=== PATIENT | male | born 1955 | race Caucasian/White ===

== ENCOUNTER 2020-02-17 09:04 | Outpatient (CLI) | payer MEDICARE, OTHER ==
--- NOTE | 2020-02-17 10:22 | CT ---
CT lumbar spine noncontrast: 02/17/2020 HISTORY: 62-year-old male with lumbar spondylolysis, low back pain, and lumbar radiculopathy FINDINGS: 5 lumbar-type vertebrae. Vertebral body heights are maintained. No scoliosis. Somewhat severe disc sp yon narrowing at L5-S1 with vacuum disc phenomenon, and endplate degenerative changes. Mild disc space narrowing at L2-3 and L3-4. T12-L1: Very small central and bilateral paracentral disc-osteophyte complex slightly indents thecal sac. No central or neural foraminal stenosis. No high-grade facet DJD. L1-2: Essentially normal. L2-3: Mild disc bulge. No high-grade neural foraminal stenosis. Mild ligamentum flavum thickening. Mi ld to moderate central spinal canal stenosis. L3-4: Mild bilateral neural foraminal stenosis. Diffuse disc bulge. Moderate ligamentum flavum thicke juan carlos. Moderate to severe central spinal canal stenosis. Moderate bilateral facet DJD. L4-5: Mild diffuse disc bulge. Severe bilateral facet DJD. Moderate ligamentum flavum thickening. Sev ere central spinal canal stenosis. Mild to moderate right neural foraminal stenosis. Moderate left neural foraminal stenosis. Minimal 2 mm anterior translation of L4 on L5. L5-S1: Bilateral L5 pars interarticularis defects. Moderate to severe bilateral neural foraminal sten osis. Minimal 2 mm anterolisthesis of L5 on S1. Diffuse disc bulge. Right lateral recess effacement by right paracentral/lateral focal small disc herniation superimposed on mild diffuse disc bulge, imp inging on the right S1 nerve root. The appearance is very similar to that of 04/26/2017 MRI. No high-grade central spinal canal stenosis. Moderate thecal sac stenosis. IMPRESSION: 1. Bilateral L5 spondylolysis. 2. High-grade degenerative disc disease at L5-S1. 3. Chronic impingement on right S1 nerve root at L5-S1 due to chronic right paracentral-lateral focal disc herniation 4. Severe central spinal canal stenosis at L4-5. 5. Other levels of high-grade central spinal canal stenosis and neural foraminal stenosis. 6. Severe bilateral facet osteoarthrosis at L4-5.
== END 2020-02-17 09:05 | disposition home or self-care (01) ==
LOC: TBSIIMAG 09:04
PROVIDERS: ATTEND Neurological Surgery
DX: M43.06 Spondylolysis, lumbar region (principal); M51.37 Other intervertebral disc degeneration, lumbosacral region; M48.061 Spinal stenosis, lumbar region without neurogenic claudication; M47.816 Spondylosis without myelopathy or radiculopathy, lumbar region; M25.80 Other specified joint disorders, unspecified joint; M51.27 Other intervertebral disc displacement, lumbosacral region
CPT/HCPCS: 72131

== ENCOUNTER 2020-03-24 06:35 | Outpatient (CLI) | payer MEDICARE, OTHER ==
[2020-03-24 11:19] LABS: Hemoglobin 16.6 g/dL (14.0-18.0); Mean Corpuscular HGB CONC 33.5 g/dL (32.0-36.0); Mean Corpuscular Hemoglobin 29.2 pg (27.0-31.0); Mean Corpuscular Volume 87.3 fL (78.0-98.0); Mean Platelet Volume 8.8 fL (7.4-10.4); Platelet Count 221 thou/uL (130-400); RBC Distribution Width 13.6 % (11.5-14.5); Red Blood Cell (RBC) Count 5.67 mill/uL (4.70-6.10); White Blood Cell (WBC) Count 7.5 thou/uL (4.8-10.8)
[2020-03-24 12:18] LABS: Anion Gap 13 mmol/L (10-20); BUN (Urea Nitrogen) 17 mg/dL (8.4-25.7); Calc. Creatinine Clearance 0 mL/min (70-130); Calcium 10.4 mg/dL (7.8-10.44); Carbon Dioxide 29 mmol/L (23-31); Estimated GFR-MDRD 62; Glucose 102 mg/dL (80-115)
[2020-03-24 12:24] LABS: Chloride 97 mmol/L (98-107); Potassium 3.9 mmol/L (3.5-5.1); Sodium 135 mmol/L (136-145)
[2020-03-25 12:09] LABS: SARS-CoV-2 MS2 Positive; SARS-CoV-2 N Gene Negative; SARS-CoV-2 S Gene Negative; SARS-CoV-2 orf1ab Negative
== END 2020-03-24 06:36 | disposition home or self-care (01) ==
LOC: LABBT 06:35
PROVIDERS: ATTEND Neurological Surgery
DX: Z01.812 Encounter for preprocedural laboratory examination (principal); Z11.59 Encounter for screening for other viral diseases; M43.06 Spondylolysis, lumbar region
CPT/HCPCS: 80048; 85027; U0003; 87635

== ENCOUNTER 2020-03-28 07:23 | Observation (INO) | payer MEDICARE, OTHER ==
[2020-03-23 13:43] VITALS: BMI 28.8
--- NOTE | 2020-03-28 00:45 | HP ---
HISTORY OF PRESENT ILLNESS: Mr. Glasgow is a pleasant 65-year-old man, here today for both neck and low back pain that he has been dealing with for many years. His biggest concern today that his lower back, which is axial in nature and associated with the right lower extremity L5 pain. He has bilateral pars defects at L5 with no associated spondylolisthesis. He does have bilateral foraminal stenosis at this level that would fit well with his symptoms. He has treated his back pain with therapy and injections with minimal relief and his pain continued to progress. PAST MEDICAL HISTORY: Significant for chronic pain syndrome, hypertension, diabetes, and autoimmune disease. CURRENT MEDICATIONS: Naproxen, Movantik, metoprolol, methotrexate, metformin, lisinopril/hydrochlorothiazide, ketoconazole, hydromorphone, Horizant, folate, fluocinonide, duloxetine, diclofenac, azelastine, Nuvigil, OxyContin, pantoprazole, promethazine, rosuvastatin, sulfasalazine, tamsulosin, and tizanidine. PAST SURGICAL HISTORY: DCS placement. ALLERGIES: NONE LISTED. PHYSICAL EXAMINATION: NEUROLOGIC: The patient is alert and oriented x3. Gait is antalgic and slow. Lower extremity motor exam is normal. ASSESSMENT: Lumbar spondylolysis and radiculopathy with lumbar back pain. PLAN: Dr. Alfaro met with the patient, reviewed imaging, advocated for lumbar decompression and fusion and removal of dorsal column stimulator. He explained to the patient the risks, benefits, and alternatives to the procedure. The patient expressed understanding and elected to move forward with surgery as discussed. I do believe that the patient is mentally competent and capable of making medical decisions for himself. We will move forward with surgery as planned. Job ID: [id number]
[2020-03-28] MEDS ORDERED: Clindamycin/D5W 900 mg/50 ml Premix Bag ONE (09:08)
[2020-03-28] MEDS ORDERED: Levofloxacin 500 mg/D5W 100 ml Premix Bag ONE (09:08)
[2020-03-28] MEDS ORDERED: Thrombin 5000 UNITS/5 ML VIAL ONE (09:34)
[2020-03-28] MEDS ORDERED: EPINEPHrine 1 MG/ML AMP ONE (09:34)
[2020-03-28] MEDS ORDERED: Bupivacaine PF 0.5% 30 ML VIAL ONE (09:34)
[2020-03-28] MEDS ORDERED: Fentanyl 100 MCG/2 ML VIAL ONE ×4 (09:38→13:59)
[2020-03-28] MEDS ORDERED: EPHEDRINE 25 MG/5 ML SYRINGE ONE (12:18)
[2020-03-28] MEDS ORDERED: PROPOFOL 200 MG/20 ML VIAL ONE (12:18)
[2020-03-28] MEDS ORDERED: Dexamethasone 20 MG/5 ML VIAL ONE (12:18)
[2020-03-28] MEDS ORDERED: Rocuronium Bromide 10 MG/ML (10ML VIAL) ONE (12:18)
[2020-03-28] MEDS ORDERED: Ondansetron PF 4 MG/2 ML Vial ONE (12:18)
[2020-03-28] MEDS ORDERED: HYDROmorphone 2 MG/ML VIAL ONE (13:47)
[2020-03-28] MEDS ORDERED: Tamsulosin HCl 0.4 MG CAP ONE (14:18)
[2020-03-28] MEDS ORDERED: HYDROcodone/Acetaminophen 10/325 mg Tablet ONE (17:05)
[2020-03-28] MEDS ORDERED: Bisacodyl 10 MG SUPP PR PRN (18:01)
[2020-03-28] MEDS ORDERED: Cyclobenzaprine 10 MG TAB PO PRN (18:01)
[2020-03-28] MEDS ORDERED: Acetaminophen 325 MG TAB PO PRN (18:01)
[2020-03-28] MEDS ORDERED: diphenhydrAMINE 50 MG/ML VIAL IVP PRN (18:01)
[2020-03-28] MEDS ORDERED: Morphine 4 MG/ML VIAL SLOW IVP PRN (18:01)
[2020-03-28] MEDS ORDERED: Mag-Al 1200 mg/1200 mg/30 ML UDCUP PO PRN (18:01)
[2020-03-28] MEDS ORDERED: Milk Of Magnesia 30 ML UDCUP PO PRN (18:01)
[2020-03-28] MEDS ORDERED: Acetaminophen 650 MG Suppository PR PRN (18:01)
[2020-03-28] MEDS ORDERED: diphenhydrAMINE 25 MG CAP PO PRN (18:01)
[2020-03-28] MEDS ORDERED: HYDROcodone/Acetaminophen 10/325 mg Tablet PO PRN (18:01)
[2020-03-28] MEDS ORDERED: Ondansetron PF 4 MG/2 ML Vial IM PRN (18:02)
[2020-03-28] MEDS: Sodium Chloride 0.9% 1,000 ML IV SCH (18:18)
[2020-03-28] MEDS ORDERED: BUPRENORPHINE 300 MCG FS PRN (18:46)
[2020-03-28] MEDS ORDERED: HYDROmorphone 2 MG TAB PO PRN (18:47)
[2020-03-28] MEDS: metFORMIN 500 MG TAB PO SCH (20:16)
[2020-03-28] MEDS: Flecainide 50 MG TAB PO SCH (20:17)
[2020-03-28] MEDS: HYDROcodone/Acetaminophen 10/325 mg Tablet PO PRN (20:18)
[2020-03-28] MEDS ORDERED: Rosuvastatin 5 MG TAB PO SCH (21:00)
[2020-03-28] MEDS ORDERED: Lisinopril/Hydrochlorothiazide 20 mg/12.5 mg Tablet PO SCH (21:00)
[2020-03-28] MEDS ORDERED: Ferrous Sulfate 325 MG TAB PO SCH (21:00)
[2020-03-28] MEDS ORDERED: tiZANidine HCl 4 MG TAB PO SCH (21:00)
[2020-03-28] MEDS: Clindamycin/D5W 900 MG in Premix Bag 1 BAG IVPB SCH (22:02)
[2020-03-28] MEDS: Morphine 2 MG/ML SYRINGE SLOW IVP PRN (23:37)
[2020-03-29] MEDS: HYDROcodone/Acetaminophen 10/325 mg Tablet PO PRN ×2 (02:28→07:31)
[2020-03-29] MEDS: Morphine 2 MG/ML SYRINGE SLOW IVP PRN (03:20)
[2020-03-29] MEDS: Clindamycin/D5W 900 MG in Premix Bag 1 BAG IVPB SCH (05:26)
[2020-03-29] MEDS ORDERED: Levothyroxine Sodium 50 MCG TAB PO SCH (06:00)
[2020-03-29] MEDS ORDERED: Tamsulosin HCl 0.4 MG CAP PO SCH (06:00)
[2020-03-29] MEDS: Sodium Chloride 0.9% 1,000 ML IV SCH (07:27)
[2020-03-29] MEDS: Flecainide 50 MG TAB PO SCH (08:23)
[2020-03-29] MEDS: metFORMIN 500 MG TAB PO SCH (08:23)
[2020-03-29] MEDS ORDERED: Fish Oil 1,000 MG CAP PO SCH (09:00)
[2020-03-29] MEDS ORDERED: Ubidecarenone 50 MG CAP PO SCH (09:00)
[2020-03-29] MEDS ORDERED: TESTOSTERONE TD SCH (09:00)
[2020-03-29 11:59] VITALS: BP 102/51; TEMP 98.7
--- NOTE | 2020-03-30 17:55 | EKG ---
Test Reason : PREOP Blood Pressure : / mmHG Vent. Rate : 053 BPM Atrial Rate : 053 BPM P-R Int : 218 ms QRS Dur : 096 ms QT Int : 432 ms P-R-T Axes : 052 -03 040 degrees QTc Int : 405 ms Sinus bradycardia with 1st degree A-V block Otherwise normal ECG No previous ECGs available Confirmed by QUITA SANDOVAL (2) on 03/30/2020 5:55:32 PM Referred By: Tami FULLER Confirmed By:QUITA SANDOVAL
--- NOTE | 2020-04-25 12:40 | OP ---
DATE OF PROCEDURE: 03/28/2020 INFORMATION SECURITY OFFICER: Edward Neal PA-C INDICATION: Pain. DIAGNOSES: Lumbar spondylolisthesis and malfunctioning of silicon stimulator. PROCEDURE PERFORMED: Removal of dorsal column stimulator as well as fusion of L5 through S1. DESCRIPTION OF PROCEDURE: The patient was brought into the operating room and placed under general anesthesia. He was flipped from the supine to prone position on the operating room table. A linear incision was planned over the L5-S1 segment as well as two separate incisions, one over the generator and the other over the placement of the lead electrodes. All three incisions were prepped and draped and all three were open. The dural column stimulator was removed first with complete removal of both the generator and the lead electrodes. The soft tissues at L5-S1 were then exposed and a self-retaining retractor was placed for optimal exposure. After confirming the appropriate levels, laminectomies and medial facetectomies were performed at L5-S1 to decompress the lateral recesses and expose the pedicles. Pedicle screws were then placed with the aid of C-arm fluoroscopy. An intraoperative 3D CT scan was then performed to confirm placement of hardware. Rods were then placed across screw heads and final tightened. Allograft and autograft material were placed in the lateral confines of the instrumentation construct. The wound was then irrigated. Hemostasis was maintained throughout. All three wounds were closed in anatomic layers, and a pressure dressing was applied. There were no known procedural complications. Job ID: [id number]
== END 2020-03-29 12:18 | disposition home or self-care (01) ==
LOC: SDC 07:23 → SURG A 16:33
PROVIDERS: ADMIT Neurological Surgery; ATTEND Neurological Surgery
PROC: 00PU3MZ Removal of Neurostimulator Lead from Spinal Canal, Percutaneous Approach (ICD-10-PCS; principal; 2020-03-28)
PROC: 0JPT0MZ Removal of Stimulator Generator from Trunk Subcutaneous Tissue and Fascia, Open Approach (ICD-10-PCS; 2020-03-28)
PROC: 0SG3071 Fusion of Lumbosacral Joint with Autologous Tissue Substitute, Posterior Approach, Posterior Column, Open Approach (ICD-10-PCS; 2020-03-28)
DX: M43.16 Spondylolisthesis, lumbar region (principal); T85.113A Breakdown (mechanical) of implanted electronic neurostimulator, generator, initial encounter; M47.26 Other spondylosis with radiculopathy, lumbar region; M48.061 Spinal stenosis, lumbar region without neurogenic claudication; G89.4 Chronic pain syndrome; I10 Essential (primary) hypertension; E11.9 Type 2 diabetes mellitus without complications; M35.9 Systemic involvement of connective tissue, unspecified; Z79.82 Long term (current) use of aspirin; Z79.84 Long term (current) use of oral hypoglycemic drugs; Z79.899 Other long term (current) drug therapy; Z88.1 Allergy status to other antibiotic agents; Z91.030 Bee allergy status
CPT/HCPCS: 20930; 20936; 22612; 22840; 63661; 63688; 76000; 93005; 96365; 96375; 96376; C1713 ×4; G0378 ×2; 93010; J0171; J1100; J1170; J1956; J2270; J2405; J2704; J3010; J3490; S0020

== ENCOUNTER 2020-04-14 12:08 | Outpatient (CLI) | payer MEDICARE, OTHER ==
--- NOTE | 2020-04-14 13:33 | RAD ---
MRI clearance: Lumbar spine 1 view: 04/14/2020 HISTORY: 65-year-old male scheduled for MRI. Status post removal of dorsal column spinal cord stimulator. Rule out retained stimulator leads. FINDINGS: The generator and the spinal cord stimulator, demonstrated on the [facility] radiograph for the lumbar spi ne CT of 02/17/2020, have been removed. There are now skin sarah superficial to the right upper gluteal region. Laminectomy defect at L5. Bilateral pedicle screws at L5 and S1. No scoliosis. IMPRESSION: 1.) Status post removal of spinal cord stimulator. No retained leads. 2) status post midline laminectomy and posterior lumbar fusion hardware placement at lower lumbar spi ne and lumbosacral junction. 3) patient is cleared for MRI.
--- NOTE | 2020-04-14 13:52 | MRI ---
MRI Cervical Spine WO Con History: M 53.12 cervical radicular pain Comparison: Cervical spine MRI 2017 Findings: Cerebral tonsils terminate at the foramen magnum. No marrow infiltrative process. Cord sign al is normal. Paraspinal soft tissues are unremarkable. Levels are as follows: C2/C3: Minimal uncinate process hypertrophy. No neural foraminal or spinal canal narrowing. Likely fu jeanine of the right facet joint. C3/C4: Mild disc desiccation. Mild uncinate process hypertrophy. Moderate to severe right and moderat e left hypertrophic facet arthrosis. No significant spinal canal narrowing. Moderate right and mild left neural foraminal narrowing. C4/C5: Small circumferential disc bulge. Mild left and moderate right hypertrophic facet arthrosis. M oderate right and mild left neural foraminal narrowing. Mild effacement of the ventral CSF space with the spinal canal measuring over 11 mm. C5/C6: Mild disc desiccation and height loss with circumferential disc osteophyte complex. Only mild hypertrophic facet arthrosis. Moderate to severe left and moderate right neural foraminal narrowing predominantly sequelae of the lateral recess and subforaminal disc osteophyte complex. No significant spinal canal narrowing. C6/C7: Mild disc desiccation and height loss with circumferential disc osteophyte complex. Only mild hypertrophic facet arthrosis. Mild effacement of ventral CSF space with the spinal canal measuring approximately 11 mm. Moderate left and mild right neural foraminal narrowing. C7/T1: Normal disc. No neural foraminal or spinal canal narrowing. Incomplete evaluation of likely a perineural cysts along the left T3 neural foramen. Impression: Multilevel moderate spondylosis as described. No cord abutment.
--- NOTE | 2020-04-14 14:22 | MRI ---
MRI thoracic spine noncontrast: 04/14/2020 HISTORY: 65-year-old female. ICD-10: "M 54.14, thoracic radiculopathy" According to pathology laboratory technologist, the patient "complains of [id number] sensation across his scapul a area and radiates up to his neck" COMPARISON: None FINDINGS: There is a fluid collection with irregular borders measuring approximately 3.5 x 5.5 x 2 cm located i n the soft tissues posterior to the spinal canal, from the lower T9 level to the mid T11 level. The most anterior extent is a anterior process that reaches approximately 1 cm posterior to the posterior surface of the spinal canal at the T10-11 level. The dorsal aspect is in the subcutaneous fat posterior to the dorsal thoracic fascia, with a small subdermal contact point. In the subcutaneous fa t, there is edema surrounding this fluid collection. Vertebral body heights are maintained. There are mild discogenic degenerative changes at multiple lev els in the lower-mid and lower levels, with small central disc protrusions indenting the ventral surface of the thecal sac at T8-9, T9-10, and T7-8. Bone marrow signal is normal. Thoracic spinal cor d is normal in size and syrinx. No syrinx. No central spinal canal stenosis, cord impingement, or high-grade neural foraminal stenosis, at any level. No pathology of anterior perivertebral space (pre vertebral space). Conus medullaris terminates near T12-L1. IMPRESSION: 1.) Retrospinal fluid collection at lower thoracic levels. Etiology is uncertain. Possibilities inclu de abscess, seroma/hematoma, and pseudomeningocele. 2) other than mild discogenic degenerative changes at lower levels, the spinal canal demonstrate no m ajor pathology.
--- NOTE | 2020-04-14 14:45 | MRI ---
MRI LUMBAR SPINE NONCONTRAST: DATE: 04/14/2020 HISTORY: 65-year-old male with ICD-10: "M 43.06, lumbar spondylolysis" Bilateral lower extremity pain and weakness. COMPARISON: 04/26/2017 FINDINGS: There are 5 lumbar-type vertebrae. Vertebral body heights are maintained. New finding of distended urinary bladder. Conus medullaris terminates at T12-L1. No major spondylolisthesis. The magnetic susceptibility artifact from that hardware obscures some of the bone marrow signal at th ose levels. No major bone marrow signal abnormality at any other level. Distribution of cauda equina within the thecal sac is normal. T12-L1:Central and bilateral paracentral small disc protrusions. No central stenosis, neural foramina l stenosis, or disc space narrowing. L1-2:Essentially normal. L2-3:Disc desiccation without high-grade disc space narrowing. Disc bulge indents the ventral surface of thecal sac. No high-grade central or high-grade neural foraminal stenosis. No interval change. Mild ligamentum flavum thickening. L3-4:Disc space maintained. Disc bulge is minimally larger than on 04/18/2017, indenting the ventral s urface of thecal sac. Severe bilateral facet DJD with osteophytosis and bilateral facet joint effusions. Mild bilateral neural foraminal stenosis. Ligamentum flavum thickening indents bilateral p osterior aspects of thecal sac. Moderate central spinal canal stenosis. No major interval change except for the worsening of facet DJD. L4-5:Severe bilateral facet DJD. New bilateral facet joint effusions. Moderate to severe ligamentum f lavum thickening similar to 2017. No high-grade disc space narrowing. Disc bulge. Moderate to severe central spinal canal stenosis with lateral recess stenosis. Mild to moderate bilateral neural foraminal stenosis. Degree of central spinal canal stenosis is similar to 2017. L5-S1:New bilateral pedicle screws at L5 and S1, new since CT of 02/17/2020. Partially obscured by the magnetic susceptibility artifact, there are moderately large postoperative fluid collections around the bilateral vertical interlocking rods. On the right, this measures approximately 3 cm in cr aniocaudal dimension. On the left it is of similar size. The bilateral fluid collections deeply indent the posterior aspect of the thecal sac, causing severe thecal sac stenosis with obliteration o f CSF signal (worse than at the L4-5 level). This is a new finding since 02/25/2020. The previously minimal mentioned right lateral focal disc herniation at the right lateral recess was present on the 2017 MRI, and remains. Without gadolinium based contrast agent, it is difficult to determine whether this is residual disc extrusion or postsurgical scar tissue now. Moderate bilateral neural fo raminal stenosis. Moderate disc space narrowing. IMPRESSION: 1. Status post laminectomy and bilateral pedicle screw placement at L5-S1 2. Large bilateral postsurgical fluid collections around the hardware severely indenting the posterio r aspect of thecal sac, causing severe central spinal canal stenosis at L5-S1. 3. Severe bilateral facet osteoarthrosis at L3-4 and L4-5. 4) moderate to severe central spinal canal stenosis at L4-5.
== END 2020-04-14 12:09 | disposition home or self-care (01) ==
LOC: TBSIIMAG 12:08
PROVIDERS: ATTEND Neurological Surgery
DX: M47.22 Other spondylosis with radiculopathy, cervical region (principal); M47.816 Spondylosis without myelopathy or radiculopathy, lumbar region; M51.14 Intervertebral disc disorders with radiculopathy, thoracic region; M48.061 Spinal stenosis, lumbar region without neurogenic claudication; M48.07 Spinal stenosis, lumbosacral region; L76.34 Postprocedural seroma of skin and subcutaneous tissue following other procedure; Z98.1 Arthrodesis status; Z98.890 Other specified postprocedural states
CPT/HCPCS: 72020; 72141; 72146; 72148

== ENCOUNTER 2023-01-16 06:43 | Day surgery (SDC) | payer MEDICARE, OTHER ==
[2023-01-15 10:33] VITALS: BMI 31.0
[~2023-01-16 06:43] MED LIST: Lidocaine 1% w/Epinephrine 1:100K 20 ML VIAL ONE
== END 2023-01-16 08:13 | disposition home or self-care (01) ==
LOC: SDC 06:43
PROVIDERS: ATTEND Internal Medicine Cardiovascular Disease
PROC: 0JPT32Z Removal of Monitoring Device from Trunk Subcutaneous Tissue and Fascia, Percutaneous Approach (ICD-10-PCS; principal; 2023-01-16)
DX: Z45.09 Encounter for adjustment and management of other cardiac device (principal); I48.0 Paroxysmal atrial fibrillation; I12.9 Hypertensive chronic kidney disease with stage 1 through stage 4 chronic kidney disease, or unspecified chronic kidney disease; N18.2 Chronic kidney disease, stage 2 (mild); E78.5 Hyperlipidemia, unspecified; J45.909 Unspecified asthma, uncomplicated; I49.1 Atrial premature depolarization; M06.9 Rheumatoid arthritis, unspecified; G47.33 Obstructive sleep apnea (adult) (pediatric); Z87.891 Personal history of nicotine dependence; Z79.01 Long term (current) use of anticoagulants; Z79.85 Long-term (current) use of injectable non-insulin antidiabetic drugs; Z79.890 Hormone replacement therapy; Z79.899 Other long term (current) drug therapy; Z88.1 Allergy status to other antibiotic agents; Z91.030 Bee allergy status
CPT/HCPCS: 33286

== ENCOUNTER 2023-12-04 09:01 | Outpatient (CLI) | payer MEDICARE, OTHER | END 2023-12-04 09:02 | disposition home or self-care (01) | LOC: SCSMRI 09:01 | PROVIDERS: ATTEND Orthopaedic Surgery | DX: M50.10 Cervical disc disorder with radiculopathy, unspecified cervical region (principal) | CPT/HCPCS: 72141 ==

== ENCOUNTER 2024-10-14 09:21 | Outpatient (CLI) | payer MEDICARE, OTHER | END 2024-10-14 09:22 | disposition home or self-care (01) | LOC: SCSRAD 09:21 | PROVIDERS: ATTEND Orthopaedic Surgery | DX: M54.2 Cervicalgia (principal); M47.812 Spondylosis without myelopathy or radiculopathy, cervical region | CPT/HCPCS: 72040 ==

== ENCOUNTER 2024-11-05 09:09 | Outpatient (CLI) | payer MEDICARE, OTHER ==
[2024-11-05] MEDS ORDERED: Iopamidol 370 76% 100 ML VIAL ONE (13:59)
== END 2024-11-05 09:10 | disposition home or self-care (01) ==
LOC: CT 09:09
PROVIDERS: ATTEND Physician Assistant Medical
DX: R10.11 Right upper quadrant pain (principal); K21.9 Gastro-esophageal reflux disease without esophagitis; R10.32 Left lower quadrant pain; R19.7 Diarrhea, unspecified; R14.2 Eructation; R14.0 Abdominal distension (gaseous); K59.00 Constipation, unspecified; K76.89 Other specified diseases of liver
CPT/HCPCS: 36415; 74177; 82565

== ENCOUNTER 2024-12-03 10:24 | Outpatient (CLI) | payer MEDICARE, OTHER ==
[2024-12-03 11:35] LABS: #Basophils 0.06 10x3/uL (0.0-0.2); %Basophils 0.7 % (0.0-1.0); %Eosinophils 2.5 % (0.0-10.0); %Lymphocytes 16.2 % (21.0-51.0); %Monocytes 7.5 % (0.0-10.0); %Neutrophils 72.7 % (42.0-75.0); Hematocrit 45.8 % (42.0-52.0); Hemoglobin 15.8 g/dL (14.0-18.0); Mean Corpuscular HGB CONC 34.5 g/dL (32.0-36.0); Mean Corpuscular Hemoglobin 29.3 pg (27.0-31.0); Mean Corpuscular Volume 84.8 fL (78.0-98.0); Mean Platelet Volume 9.4 fL (7.4-10.4); Platelet Count 251 10x3/uL (130-400); RBC Distribution Width 12.9 % (11.5-14.5)
[2024-12-03 11:52] LABS: Hemoglobin A1c 5.3 % (4.0-6.0)
[2024-12-03 12:01] LABS: Anion Gap 15 mmol/L (10-20); BUN (Urea Nitrogen) 15 mg/dL (8.4-25.7); Calc. Creatinine Clearance 0 mL/min (70-130); Calcium 9.5 mg/dL (7.8-10.44); Carbon Dioxide 20 mmol/L (23-31); Chloride 104 mmol/L (98-107); Estimated GFR 81; Glucose 146 mg/dL (80-115); Potassium 4.6 mmol/L (3.5-5.1); Sodium 134 mmol/L (136-145)
[2024-12-03 12:22] LABS: PTT 31.6 sec (22.9-36.1)
[2024-12-03 12:34] LABS: INR-International Normal Ratio 1.2; Prothrombin Time 15.1 sec (12.0-14.7)
== END 2024-12-03 10:25 | disposition home or self-care (01) ==
LOC: LABBT 10:24
PROVIDERS: ATTEND Orthopaedic Surgery
DX: Z01.818 Encounter for other preprocedural examination (principal); M54.12 Radiculopathy, cervical region
CPT/HCPCS: 80048; 83036; 85025; 85610; 85730; 87081; 93005; 93010